=== PATIENT | female | born 1980 | race Caucasian/White ===

== ENCOUNTER → 2024-05-25 07:29 | Outpatient (CLI) | payer OTHER, SELFPAY ==
--- NOTE | 2024-05-25 07:30 | DI.US.S_ITS ---
PROCEDURE: US PELVIC COMPLETE INDICATIONS: Pre hysterectomy evaluation of endometrium/pelvis TECHNIQUE: Real-time scanning was performed of the pelvic organs, with image documentation. Additional endovaginal scanning was necessary due to incomplete visualization of the adnexal and endometrial structures by transabdominal scanning. COMPARISON: None. FINDINGS: Uterus: Uterus is anteverted and normal in size at 8.0 x 4.2 x 4.9 cm. The myometrium is heterogeneous. The endometrium measures 12 mm combined thickness. No uterine fibroids. Ovaries: The right ovary measures 3.2 x 3.4 x 2.3 cm, with a calculated ovarian volume of 12.9 cc. Simple cyst measuring 2.8 x 2.0 x 2.4 centimeters The left ovary measures 1.9 x 2.9 x 2.4 cm, with a calculated ovarian volume of 6.9 cc. Simple cyst measuring 1.6 x 1.7 x 1.6 centimeters. The ovaries have a normal sonographic appearance. Less than 12 follicles can be seen in each ovary. No adnexal masses are seen. Other: No pathologic free abdominal or pelvic fluid. IMPRESSION: Endometrium is normal in thickness for a premenopausal female. Simple cysts within the bilateral ovaries which are likely physiologic. Otherwise, normal appearance of the ovaries. We strive to produce accurate, complete, and clear reports of imaging services. To assist us in improving patient care, this report was composed using standard report templates and voice recognition software. Therefore, it may contain abnormal punctuation, insertions and/or omissions. Occasional wrong-word or sound-alike substitutions may occur. Though we review the report and make efforts to correct it, we do recommend that the report be read carefully in proper context to recognize any text inaccuracies. Dictated by: Andre Parker M.D. on 05/25/2024 at 13:24 Approved by: Andre Parker M.D. on 05/25/2024 at 13:28
== END ==
LOC: US 07:29
PROVIDERS: Referring Provider Obstetrics & Gynecology; Visit Provider Obstetrics & Gynecology
DX: Z01.818 Encounter for other preprocedural examination (principal); N83.292 Other ovarian cyst, left side; N83.291 Other ovarian cyst, right side
CPT/HCPCS: 76830; 76856

== ENCOUNTER → 2024-08-11 14:04 | Outpatient (CLI) | payer OTHER, SELFPAY ==
--- NOTE | 2024-08-11 14:06 | DI.CT.S_ITS ---
PROCEDURE: CT SINUS SCREEN WO CON INDICATIONS: NASAL OBSTRUCTION/PANSINUITIS/RHINITIS TECHNIQUE: Noncontrast 3.0 mm axial images acquired from the frontal sinuses to the mid-sella, with coronal and sagittal reformats. For radiation dose reduction, the following was used: automated exposure control, adjustment of mA and/or kV according to patient size. COMPARISON: None. FINDINGS: Image quality: Excellent. Maxillary Sinuses: Significant mucosal thickening and debris left maxillary sinus with obstruction of the ostiomeatal unit. Mucosal thickening in a right also results in occlusion of the ostiomeatal unit. Small right retention cyst present. Bilateral Oswaldo cells noted posterior to the egress tracks Ethmoid Air Cells: No bony remodeling or destruction. Sinuses are clear. Sphenoid Sinuses: No bony remodeling or destruction. Sinuses are clear. Frontal Sinuses: No bony remodeling or destruction. Sinuses are clear. Miscellaneous: Visualized intra-orbital contents are normal. No patricia bullosa or paradoxical turbinate curvature. No nasal septal deviation. Comminuted nasal bone fracture, probably old. Incidental congenital incomplete ring of C1 IMPRESSION: Left maxillary significant mucosal sinus disease with obstruction of the bilateral ostiomeatal units Old comminuted nasal bone fracture. Midline septum Approved by: Reece Rosen M.D. on 08/11/2024 at 14:25
== END ==
LOC: CT 14:05
PROVIDERS: Referring Provider Otolaryngology; Visit Provider Otolaryngology
DX: J32.4 Chronic pansinusitis (principal); J34.89 Other specified disorders of nose and nasal sinuses; J31.0 Chronic rhinitis; J30.9 Allergic rhinitis, unspecified; J34.2 Deviated nasal septum; J34.3 Hypertrophy of nasal turbinates
CPT/HCPCS: 70486

== ENCOUNTER 2024-09-02 08:22 | Day surgery (SDC) | payer OTHER, SELFPAY ==
--- NOTE | 2024-09-02 | PATH_ITS ---
[facility] Accession Number: [id number] No. of containers..01 Tissue . 01 Material submitted: . rectum - RECTAL POLYP AT 20 CM . 01 Diagnosis: RECTAL POLYP AT 20 CM: Hyperplastic polyp with erosion. RAY 09/06/2024 1159 Local . 01 Electronically signed: . Danny Alberts MD, PhD, Pathologist NPI- [id number] . 01 Gross description: . RECTAL POLYP AT 20 CM: Received in formalin is 1 fragment(s) of dempsey, soft tissue measuring 0.4 x 0.2 x 0.2 cm submitted entirely in 1 cassette(s) /GAMA 09/05/2024 1708 Local . 01 Pathologist provided ICD-10: K62.1 . 01 CPT . 737864 Specimen Comment: A courtesy copy of this report has been sent to [facility] Pathology Performed at: [address] [facility] [address] [address], [place], [place] [id number] MD Mauri Camara MD Phone: [phone]
--- NOTE | 2024-09-02 08:54 | PM.HP.IH.1 ---
History of Present Illness History of Present Illness Date Patient Seen: 09/02/24 Time Patient Seen: 08:54 Chief complaint: Dx Colonoscopy w/poss bx Narrative: Positive fecal immunohistochemistry test [facility] Medical History (Updated 05/18/24 @ 20:20 by Jahaira Aguilar) Sleep apnea (~2015) Allergies (~2008) Migraines (~2009) Foot pain (~2009) Chronic back pain (~2017) Anemia (~1978) Tinnitus (~2017) Recurrent sinusitis (~2015) Irregular menstrual cycle (~2020) Herpes (~2004) Frequent UTI (~2019) G6PD deficiency (~1978) Vaginal enterocele due to incomplete uterovaginal prolapse (~2020) CHELSEA (stress urinary incontinence, female) (~2019) Surgical History (Updated 05/18/24 @ 20:20 by Jahaira Aguilar) Anesthesia History of bunionectomy History of section (~2010) History of rhinoplasty (~2011) History of tonsillectomy (~1999) Family History (Updated 05/18/24 @ 20:23 by Jahaira Aguilar) Grandfather Stroke Grandfather History of heart disease Grandmother Breast cancer Social History household members: spouse Smoking Status: Never smoker alcohol intake: current Meds Home Medications and Allergies Home Medications Medication Instructions Recorded Confirmed Type sodium,potassium,mag sulfates 17.5 See Rx Instructions PO .COMPLEX 08/17/24 Rx gram-3.13 gram-1.6 gram oral soln #354 mL (Suprep Bowel Prep Kit) prednisone 10 mg tablet 10 mg PO DAILY 09/02/24 09/02/24 History Allergies Allergy/AdvReac Type Severity Reaction Status Date / Time No Known Drug Allergies Allergy Verified 09/02/24 08:25 Review of Systems Review of Systems Narrative: Denies unexpected weight loss, hematochezia, bright red blood per rectum, no family history of colon cancer Exam Const General: cooperative and healthy appearing Orientation: alert, awake and oriented x3 HENMT Head: normal to inspection Eyes General: appearance normal, both eyes and all related structures Neck Neck: normal visual inspection Chest Chest: normal inspection of the chest Resp Effort & Inspection: normal respiratory effort GI Inspection: normal to inspection Palpation: soft Assessment & Plan Assessment & Plan narrative: Positive fit test here for screening colonoscopy. Consent obtained, questions answered Time-Based Coding :: [TOTAL MINUTES] spent with patient and on the chart (including review of chart, obtaining history, exam, reviewing outside data, placing orders, documenting exam and treatment plan, and counseling patient) on [DATE]. [employer] Online [employer] Manager Document charge(s): Yes
[2024-09-02 09:45] VITALS: BP 112/72; PULSE 70; RESP 12; TEMP 36.1; O2SAT 99
--- NOTE | 2024-09-02 09:46 | PM.OP.COLON ---
Operative Date/Time/Diagnoses Date of procedure: 09/02/24 Time of procedure: 09:46 Pre-op diagnosis: Positive fit test Post-op diagnosis: same Procedure & Clinicians Study performed: Colonoscopy Same procedure as scheduled: Yes Indications: Positive fit test Surgeon: Raman Harris Procedure Notes SCOAP/Timeout: Performed Procedure in detail: Patient seen in the preop area, H and P updated, positive fecal occult testing. Patient reported prep was adequate. Patient brought back to procedure room, time-out was performed verifying correct patient procedure. She was given sedation. External rectal exam was performed with no identified fissures, or external hemorrhoids of significance. Digital rectal exam performed with no masses or blood. Colonoscope placed, colon insufflated, adequacy of prep was adequate but not perfect the scope was passed without difficulty to the cecum, verified by identification of the tinea. And palpation The scope was withdrawn with circumferential view of the colon, areas occluded by bowel prep or cleaned as much as possible. Several colonic diverticulum were noted the cecum, transverse colon, and descending colon. There was no bleeding. One lesion was identified at 20 cm, this had a sessile polyp appearance at the tip, but was with a long base, more consistent with an inverted colonic diverticulum was not a polyp. The tip of this was biopsied. Photograph was taken No other lesions were identified upon removal of the scope. The scope was retroflexed in the rectum and no internal hemorrhoids were identified air was withdrawn from the colon, scope was withdrawn, and the patient was brought to the recovery area in stable condition. Scope withdrawal time: 12 Findings: divertiulosis and other findings (Cecal polyp or inverted diverticulum at 20 cm, biopsy was taken) Specimen(s): other (Biopsy 20 cm) Complications: none Impression: Diverticulosis, polyp versus inverted diverticulum. Post-procedure Recommendations: Colonoscopy in 5 years Plan for aftercare: PACU Follow up: weeks (Call in 2 weeks if not notified about pathology reports before then) Disposition: PACU
[2024-09-02 09:47] VITALS: BP 106/73; PULSE 61; RESP 15; O2SAT 98
[2024-09-02 09:52] VITALS: BP 108/73; PULSE 56; RESP 10; TEMP 36.1; O2SAT 98
== END 2024-09-02 10:06 | disposition home or self-care (01) ==
DX: Z12.11 Encounter for screening for malignant neoplasm of colon (principal); R19.5 Other fecal abnormalities; K57.30 Diverticulosis of large intestine without perforation or abscess without bleeding; K63.5 Polyp of colon
CPT/HCPCS: 45380; J2704

== ENCOUNTER 2024-10-06 10:52 | Day surgery (SDC) | payer OTHER, SELFPAY ==
[2024-08-01 08:35] VITALS: BMI 23.0
[2024-10-06] VITALS (16 sets, daily range): BP systolic 89–105; BP diastolic 46–66; PULSE 61–89; RESP 10–97; TEMP 35.7–36.6; O2SAT 16–99; BMI 23.0
--- NOTE | 2024-10-06 | PATH_ITS ---
[facility] Accession Number: [id number] No. of containers..01 Tissue . 01 Material submitted: . uterus - UTERUS, CERVIX, BILATERAL TUBES . 01 Diagnosis: UTERUS, CERVIX, AND BILATERAL FALLOPIAN TUBES, HYSTERECTOMY AND BILATERAL SALPINGECTOMY: Uterus and cervix with focal serosal adhesions and weakly proliferative endometrium. Bilateral fimbriated fallopian tubes with benign paratubal cysts. Negative for malignancy. [facility] 10/13/2024 1649 Local . 01 Electronically signed: . Rosa Zuniga DO, Pathologist NPI- [id number] . 01 Gross description: . Received in formalin with two identifiers and uterus, cervix, bilat. tubes, is an intact uterus (85 grams, 7.8 cm superior to inferior, 5.1 cm medial to lateral, 4.0 cm anterior to posterior) with attached cervix (3.7 x 3.0 cm), left fallpian tube (6.4 x 0.7 cm), right fallopian tube (7.3 x 0.9 cm), and no additional adnexa. . The ectocervix is dempsey and finely granular with a patulous os 0.9 cm in diameter. The anterior paracervical margin is inked blue while the posterior paracervical margin is inked black. The serosa is dempsey with the posterior surface slightly roughened. . The endocervical canal has dempsey herringbone mucosa and is 2.4 cm in length. The endometrial cavity is 2.6 cm from cornu to cornu, and 4.3 cm in length with pink-red velvety endometrium that averages 0.2 cm thick. The myometrium is pink-dempsey and measures up to 2.1 cm in maximum thickness with no lesions identified. . Both tubes have violaceous, smooth serosa with cystic structures up to 1.6 cm in greatest dimension filled with dempsey serous fluid. The lumen of the left tube has an area of narrowing down to 0.1 cm in greatest dimension and is not grossly patent. The remaining lumen are stellate and unremarkable. . [employer] Superintendent sections are submitted as follows: A1: Anterior cervix. A2: Posterior cervix. A3: Anterior full thickness section. A4: Posterior full thickness section. A5: Area of roughened serosa. A6: Left fallopian tube to include one-half of bisected fimbriae and cross-sections. A7: Right fallopian tube to include one-half of bisected fimbriae and cross-sections. ([id number]) /RAY 10/07/2024 1022 Local . 01 Pathologist provided ICD-10: N81.4 . 01 CPT . 758542 Specimen Comment: A courtesy copy of this report has been sent to [phone] Performed at: [address] [address], [place], [place] [id number] MD Mauri Camara MD Phone: [phone]
[2024-10-06] MEDS: ACETAMINOPHEN 325 MG TABLET 650 MG PO ×3 (11:16→22:40)
[2024-10-06] MEDS: LACTATED RINGERS 1,000 ML 42 ML IV ×2 (11:18→15:03)
--- NOTE | 2024-10-06 11:52 | PM.PREOP ---
Pre-operative Note COVID-19 COVID-19 status: Not tested Interval Note History & Physical reviewed/Exam performed by Physician: Yes Changes to H&P: No
[2024-10-06] MEDS: CEFAZOLIN 2 GM/100 ML PREMIX 100 ML IV (12:02)
--- NOTE | 2024-10-06 12:27 | SUR.OPER ---
Lithotomy on padded OR bed. [place] Pad Positioner under torso. Head on pillow, arms padded and tucked at sides. Legs secured in padded yellow fins stirrups.
[2024-10-06] MEDS: BUPIVACAINE 0.25% W/ EPI 30 ML VIAL INJ ×2 (12:49→15:14)
[2024-10-06] MEDS: ROPIVACAINE 0.2% PF 2 MG/ML 10ML AMP 20 ML INJ (14:29)
--- NOTE | 2024-10-06 15:55 | PM.GYNOP.1 ---
Operative Date/Time/Diagnoses Date of procedure: 10/06/24 Time of procedure: 11:50 Pre-op diagnosis: Menometrorrhagia Uterovaginal prolapse, incomplete Stage II cystocele Enterocele Stage II rectocele Urinary incontinence Post-op diagnosis: same Procedure & Clinicians Procedure: Procedures Operation Date: 10/06/24 11:30 Actual Procedure Side Surgeon p Laparoscopic Total Hysterectomy with bilateral salpingectomy Bryan Franco MD s Laparoscopic uterosacral vault suspension s Laparoscopic, enterocele repair s Anterior and posterior colporrhaphy. MD Bryan Barger MD Joseph E. Wilson, MD s Mid urethral sling placement with cystoscopy Bryan Franco MD Indications: Shannan is a 43-year-old [employer] , who presents for evaluation of prolapse and urinary incontinence. Patient experienced menarche age 14-15 and her periods were irregular. She spent many of her reproductive years on oral contraceptives and had regular cycles while on OCs. Her 1st was delivered by section after secondary arrest in the 2nd stage and she had a 2nd delivery by vaginal subsequent to her primary . Both babies were in the mid 7 lb range. Since coming off OCs at age 39, patient's cycles have become irregular again but no intermenstrual or postcoital bleeding noted. Patient noticed a bulge vaginally in about 2020 and new that ?something was not right?. Since that time the bulge has continued to get larger and she was fitted with a 6. Ring pessary with support which provide some relief but falls out a least every 48 hours. In addition she is uncomfortable with an while it is in place. She does pelvic floor exercises faithfully but has not experienced significant benefit. She does have some urge and frequency but primarily has CHELSEA symptoms with rare episodes of urge incontinence. Paps have always been normal with her most recent in 2021. We had an extended discussion about pelvic organ prolapse, it is causes, and options for treatment/management. Following that discussion, patient would like to proceed with total laparoscopic hysterectomy, laparoscopic uterosacral ligament vault suspension, laparoscopic enterocele repair, anterior and posterior colporrhaphy with perineoplasty, and mid urethral sling with cystoscopy. She presents today for her scheduled surgery. Surgeon: Bryan Franco Tour Sales Representative: Claudia Carlson Anesthesia Type: General Operative Notes Findings: The uterus is normal in size and shape. There is some scarring in the anterior cul-de-sac from prior . The posterior cul-de-sac is free of adhesions but there is a significant enterocele noted. Both ovaries appear to be normal and there is a follicle cyst in the left ovary. Both fallopian tubes also appeared to be normal. The appendix was not visualized but the upper abdomen including the liver edge, gallbladder and diaphragm were normal to laparoscopic inspection. Closure Type: primary Specimen(s): left tube, right tube and uterus Applied: catheter and other (Vaginal packing) Estimated blood loss (mL): 150 Blood products transfused: none Procedure in detail: With the patient in modified dorsal lithotomy position preparations were made by prepping and draping the patient in usual manner for vaginal surgery and insertion of Martinez catheter. A pre-surgical time-out was then taken in accordance with [facility] policy. A bivalve speculum was then placed in the vagina and the cervix visualized. A weighted speculum was inserted in the vagina and the anterior vaginal wall inspected. A Martinez catheter was inserted in the bladder and the mid urethra was identified by palpation of the Martinez bulb. Once the mid urethra had been identified, 2 Allis clamps were placed and the area of incision infiltrated with 0.25% Marcaine with epinephrine. A 2 cm longitudinal incision of the vaginal mucosa overlying the mid urethra was then made and using Metzenbaum scissors the dissection was carried lateral on both sides so as to be able to safely introduce the retropubic tension-free vaginal tape. The TVT needle was placed 1st on the right side followed by placement of a left up through the suprapubic skin. The needle tips were brought out through the skin and remained in place while the Martinez catheter was removed and cystoscopy performed with findings as noted above. The TVT needles were then brought up through the suprapubic incisions and removed with suture scissors. The mid urethral sling was then appropriately positioned under the mid urethra and the plastic sleeves removed from the TVT once it was in correct position. The redundant portion TVT material was then excised at the skin line of the suprapubic incisions. Correct positioning of the TVT was then confirmed and the vaginal incision closed with 3-0 chromic in a running locking stitch. Pressure was maintained on the retropubic tissues for 5 minutes so as to reduce the risk subsequent bleeding or bruising. The suprapubic incisions were then closed with skin glue. and inappropriate dressing was applied. The barrier midline of the vaginal mucosa was then infiltrated with 0.25% Marcaine with epinephrine up to the cervical vaginal reflection. A longitudinal incision was then made with a scalpel and the submucosal tissues were dissected sharply and bluntly from the anterior wall of the vagina. An anterior repair was then performed with a 2 layer plication utilizing 0 Vicryl sutures. The redundant portion of vaginal mucosa was then excised and the anterior colporrhaphy was closed with 0 Vicryl interrupted near the apex and running interlocking stitch toward the introitus. The anterior lip of the cervix was then grasped with a single-tooth tenaculum. The uterus was sounded to 7 cm, the endocervical canal dilated slightly, and a Superprotonicare uterine manipulator with a small colpotomy cup was placed. The umbilicus was then infiltrated with 0.5% Marcaine with epinephrine. A 1 cm umbilical incision was made transversely and a Veress needle was used to insufflate the abdominal cavity with carbon dioxide. Once the abdomen was appropriately insufflated, a 5 mm trocar and sleeve were then placed through the umbilical incision. The scope was placed through the trocar and the initial assessment of the intra-abdominal contents carried out. A 2nd and 3rd 5 mm port was then placed 1st in the right mid quadrant from then the left mid quadrant by infiltration of the skin and subcutaneous tissues, a 1 cm transverse incision and insertion of the 5 mm bladeless port. A 4th 5 mm trocar was introduced deep in the right lower quadrant in a similar fashion. Using a 4 puncture technique, the abdomen and pelvis were inspected laparoscopy and photographically documented. The uterosacral ligaments were identified on both sides and the lateral edges of the uterosacral ligaments were marked with small dots created by monopolar cautery on cutting current at 20 w so as to be able to identify the lateral margins of the uterosacral ligaments at the time of uterosacral vault suspension. Uterus is mobilized with the VCare manipulator and attention turned to the left adnexa. The distal tube was then grasped and the fimbria varicose divided after coagulation with the PowerSeal device. The dissection was then carried out toward the cornua and the fallopian tube amputated. The tube was removed through a 5 mm port and dissection was then carried down using the PowerSeal device so as to divide the utero-ovarian ligament and the round ligament with blunt and sharp dissection of the broad down to the level of the uterine artery. The uterine artery was then skeletonized after development of a bladder flap, coagulated, and divided. Once hemostasis was assured on the left side attention was turned to the right and the tube, utero-ovarian ligament, round ligament, and broad ligament were dissected in a fashion exactly the same as it had been on the left. The right uterine artery was then visualized after skeletonization and coagulated and divided. The uterus was seen to daquan after coagulation of both your arteries and the cup was identified through the vaginal muscularis at its insertion with the body of the cervix. Circumferential excision of the vaginal cup was accomplished without difficulty using monopolar current and the uterus mobilized. The uterus was then removed through the vagina and the vaginal cuff was closed with a 2-0 Stratafix suture introduced through the vaginal canal and incorporating the distal aspects of the uterosacral ligaments on both sides. Hemostasis was excellent, the abdomen was re-insufflated, and the pelvis inspected laparoscopically. Using 2-0 Ethibond suture, 2 sutures were placed on either side so as to incorporate the more proximal portions of the uterosacral ligament on each side to the vaginal cuff. Each suture was tied securely in place with extracorporeal knot pusher. Three additional 2-0 Ethibond sutures were used to perform a Halban culdoplasty. The pelvis was inspected for any abnormality or bleeding, and the ureters were each seen to be peristalsing freely. 20 cc of ropivacaine were instilled into the posterior cul-de-sac. With complete hemostasis assured, the pneumoperitoneum was vented and the ports removed. All of the 5 mm ports were then closed with 4-0 Monocryl on the skin using inverted interrupted sutures. Skin glue was placed and after the glue was dried, an appropriate dressing was applied. Speculum exam showed no vaginal bleeding with excellent suspension of the vaginal apex and anterior vaginal wall. The posterior vaginal wall was then exposed with anterior retractors and a nica-shaped incision over the perineal body and distal vagina was performed with sharp dissection. The perineal body and posterior vaginal wall in the midline for infiltrated with 0.25% Marcaine with epinephrine. A longitudinal incision in the midline of the vaginal mucosa posteriorly was then made and sharp and blunt dissection was used to expose the perirectal spaces and the levator complexes. 0 Vicryl stitches were used in 2 layers to plicate the posterior vaginal wall/levators. Hemostasis was excellent. The redundant portion of the vaginal mucosa was then excised. Posterior vaginal mucosa then was closed with 0 Vicryl in a running interlocking stitch to the introitus. A subcuticular closure of the perineal skin was then performed with 2-0 Vicryl after closure of the deep tissues with 0 Vicryl interrupted. Vaginal pack was placed and the case was then terminated, the patient awakened, and then transferred to PACU after having tolerated the procedure well. Complications: none Post-operative Condition: stable Disposition: PACU Plan for aftercare: Routine postoperative care with follow-up planned for 2 weeks postop
[2024-10-06] MEDS: HYDROMORPHONE 1 MG INJ IV ×2 (16:05→16:09)
[2024-10-06] MEDS: ONDANSETRON 4 MG/2 ML INJ IV ×2 (16:22→20:38)
[2024-10-06] MEDS: OXYCODONE IR 5 MG TABLET PO (16:22)
[2024-10-06] MEDS: hydrOXYzine HCL 25 MG TABLET PO (16:26)
[2024-10-06] MEDS: LACTATED RINGERS 1,000 ML 100 ML IV (16:55)
[2024-10-06] MEDS: KETOROLAC 30 MG/ML VIAL IV (20:38)
[2024-10-06] MEDS: DOCUSATE 100 MG CAPSULE 200 MG PO (20:38)
[2024-10-07] VITALS: BP 89/45; PULSE 73; RESP 19; TEMP 36.6; O2SAT 95
[2024-10-07] MEDS: ONDANSETRON 4 MG/2 ML INJ IV ×3 (01:40→09:52)
[2024-10-07] MEDS: LACTATED RINGERS 1,000 ML 100 ML IV (01:47)
[2024-10-07] MEDS: KETOROLAC 30 MG/ML VIAL IV ×2 (03:26→09:52)
[2024-10-07] MEDS: HYDROMORPHONE 1 MG INJ IV ×2 (03:30→06:25)
[2024-10-07] MEDS: SODIUM CHLORIDE 0.9% FLUSH 10 ML IV ×2 (03:30→06:26)
--- NOTE | 2024-10-07 03:41 | PC.NURSE ---
Addendum entered by Kush Saleem R.N. 10/07/24 06:39: Patient medicated prior to removal of vagina packing and plunkett removal. Patient tolerated removal well with discomfort. Disposable brief and liner put on. Patient then given IV pain medication( view EMAR) due to discomfort after removal. Patients VS taken after administration of IV pain medication, Patients BP 84/65 (65) all over VS WNL. Patient stated feeling a little light headed. RN stayed bedside and reassured patient. 5 minutes later patient stated feeling better and asked for some fresh ice water. Patient denied feeling N/V, and lightheadedness resolved. Patient told to use call button to notify staff if she were to notice a gushing or leaking sensation coming from vagina. Patient verbalized understanding and had no questions. Call light left on lap of patient, Continues pulse ox reattached for monitoring. 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 Only occurs when patient repositions self in bed; other herrera patient states only a 2-3 pain. All dressing appear CDI, no shadowing in any dressings. VS WNL, Patient denies any N/V, lightheadedness. 2nd bag of LR going at 100mls/hr.
[2024-10-07] MEDS: ACETAMINOPHEN 325 MG TABLET 650 MG PO ×2 (05:22→09:51)
[2024-10-07] MEDS: OXYCODONE IR 5 MG TABLET PO ×2 (05:22→12:04)
[2024-10-07 06:11] LABS: Add Manual Diff / Slide Review NO; Basophils Absolute Auto 100 /uL (0-100); Basophils Percent Auto 0.5 % (0-2); Eosinophils Absolute Auto 0 /uL (0-450); Eosinophils Percent Auto 0.3 % (2-4); Lymphocytes Absolute Auto 2000 /uL (1100-4500); Mean Corpuscular HGB Conc 35.4 % (30-36); Mean Corpuscular Hemoglobin 33.7 PG (26-34); Mean Corpuscular Volume 95.4 fL (80-100); Monocytes Absolute Auto 900 /uL (0-900); Monocytes Percent Auto 8.8 % (3-14); Neutrophils Absolute Auto 7200 /uL (1500-7000); Neutrophils Percent Auto 70.4 % (50-75); Platelet Count 143 X10^3/uL (150-400); Red Blood Cell Count 3.25 X10^6/uL (4.0-5.2); Red Cell Distribution Width 12.9 % (11.6-14.8); White Blood Cell Count 10.2 X10^3/uL (4.5-11.0)
[2024-10-07 06:34] VITALS: BP 88/52; PULSE 65; RESP 19; TEMP 36.2; O2SAT 99
[2024-10-07 08:17] VITALS: BP 91/49; PULSE 74; RESP 16; TEMP 36.2; O2SAT 95
[2024-10-07] MEDS: DOCUSATE 100 MG CAPSULE 200 MG PO (09:52)
--- NOTE | 2024-10-07 12:49 | P.DS_ITS ---
History of Present Illness History of Present Illness Date Patient Seen: 10/07/24 Time Patient Seen: 12:49 Chief complaint: Pelvic organ prolapse Narrative: Shannan is a 43-year-old [employer] , who presents for evaluation of prolapse and urinary incontinence. Patient experienced menarche age 14-15 and her periods were irregular. She spent many of her reproductive years on oral contraceptives and had regular cycles while on OCs. Her 1st was delivered by section after secondary arrest in the 2nd stage and she had a 2nd delivery by vaginal subsequent to her primary . Both babies were in the mid 7 lb range. Since coming off OCs at age 39, patient's cycles have become irregular again but no intermenstrual or postcoital bleeding noted. Patient noticed a bulge vaginally in about 2020 and new that ?something was not right?. Since that time the bulge has continued to get larger and she was fitted with a 6. Ring pessary with support which provide some relief but falls out a least every 48 hours. In addition she is uncomfortable with an while it is in place. She does pelvic floor exercises faithfully but has not experienced significant benefit. She does have some urge and frequency but primarily has CHELSEA symptoms with rare episodes of urge incontinence. Paps have always been normal with her most recent in 2021. We had an extended discussion about pelvic organ prolapse, it is causes, and options for treatment/management. Following that discussion, patient would like to proceed with total laparoscopic hysterectomy, laparoscopic uterosacral ligament vault suspension, laparoscopic enterocele repair, anterior and posterior colporrhaphy with perineoplasty, and mid urethral sling with cystoscopy. She presents today for her scheduled surgery. Discharge Providers Provider Discharge Date: 10/07/24 Primary care physician: Gino SANCHEZ Provider Discharge provider: Bryan Franco MD Summary Hospital Course Discharge Diagnosis: Menometrorrhagia Uterovaginal prolapse, incomplete Stage II cystocele Enterocele Stage II rectocele Stress urinary incontinence Status post total laparoscopic hysterectomy with bilateral salpingectomy, laparoscopic uterosacral ligament vault suspension, laparoscopic enterocele repair, anterior and posterior colporrhaphy, mid urethral sling placement with cystoscopy Hospital Course: Shannan was admitted on the morning of 10/06/2024 and subsequently underwent a total laparoscopic hysterectomy with bilateral salpingectomy along with reconstructive procedures for her uterovaginal prolapse, enterocele, rectocele, and cystocele as well as mid urethral sling placement with cystoscopy. Full details of the procedure well summarized on my operative note of that date. Following delivery she has done exceptionally well with prompt return of bowel and bladder function, she is ambulating independently, tolerating regular diet, and her pain is well controlled with oral pain medications. She is discharged at this time to home in an afebrile normotensive condition after counseling regarding precautionary symptoms, limitations of activity, medications, and plans for follow-up which will be in 2 weeks. Medications on discharge will include resumption of all pre-admission medications and oxycodone 5 mg every 4-6 hours as needed for pain, dispense 20 with no refills. Exam Vital Signs (past 8 hours): - 10/07/24 06:34 10/07/24 08:17 10/07/24 10:00 Temperature 97.2 F L 97.2 F L Pulse Rate 65 74 Respiratory Rate 19 16 Blood Pressure 88/52 L 91/49 L Pulse Oximetry 99 95 Oxygen Delivery Method Room Air Oxygen Flow Rate 0 0 Oxygen Delivery Method Room Air Oxygen Flow Rate 0 Const General: cooperative and comfortable Nutritional Appearance: average body habitus Orientation: alert and oriented x3 HENMT Head: normal to inspection, atraumatic and abrasion Ears: hearing grossly normal bilaterally Face and sinus: face symmetric Eyes General: appearance normal, both eyes and all related structures Conjunctivae: conjunctivae normal Sclera: sclerae normal EOM: EOM intact bilaterally Neck Neck: normal visual inspection Resp Effort & Inspection: normal respiratory effort and able to speak in complete sentences Auscultation: clear to auscultation bilaterally Cardio Rate: regular rate Rhythm: regular rhythm Heart Sounds: S1 normal, S2 normal and no murmurs GI Inspection: normal to inspection and incision (Surgical dressings clean and dry) Palpation: soft, no hepatosplenomegaly and tender (Mild, diffuse postsurgical tenderness) Auscultation: normal bowel sounds External Female Exam: other (No significant bleeding noted) Extrem General: no calf tenderness Psych Appearance: grossly normal Mental Status: mental status grossly normal Speech and Movement: speech and movement normal Mood: congruent mood Affect: normal affect Attitude: cooperative Thought Process: normal Thought Content: normal Judgment: judgment good Objective Labs 10/07/24 05:58 Labs: Laboratory Results - last 24 hr 10/07/24 05:58 WBC 10.2 RBC 3.25 L Hgb 11.0 L Hct 31.0 L MCV 95.4 MCH 33.7 MCHC 35.4 RDW 12.9 Plt Count 143 L Neut % (Auto) 70.4 Lymph % (Auto) 20.0 L [place] % (Auto) 8.8 Eos % (Auto) 0.3 L Baso % (Auto) 0.5 Neut # (Auto) 7200 H Lymph # (Auto) 2000 [place] # (Auto) 900 Eos # (Auto) 0 Baso # (Auto) 100 PFSH Medical History (Updated 10/21/24 @ 11:06 by Bryan Franco MD) Anesthesia complication Sleep apnea (~2015) Allergies (~2008) Migraines (~2009) Foot pain (~2009) Chronic back pain (~2017) Anemia (~1978) Tinnitus (~2017) Recurrent sinusitis (~2015) Irregular menstrual cycle (~2020) Herpes (~2004) Frequent UTI (~2019) G6PD deficiency (~1978) Vaginal enterocele due to incomplete uterovaginal prolapse (~2020) CHELSEA (stress urinary incontinence, female) (~2019) Surgical History (Updated 10/06/24 @ 09:42 by Nicole Stanley RN) Hx of colonoscopy (09/02/24) Anesthesia History of bunionectomy History of section (~2010) History of rhinoplasty (~2011) History of tonsillectomy (~1999) Family History (Updated 05/18/24 @ 20:23 by Jahaira Aguilar) Grandfather Stroke Grandfather History of heart disease Grandmother Breast cancer Social History household members: spouse Smoking Status: Never smoker alcohol intake: current Discharge Assessment & Plan Assessment and Plan Assessment: Menometrorrhagia Uterovaginal prolapse, incomplete Stage II cystocele Enterocele Stage II rectocele Stress urinary incontinence Status post total laparoscopic hysterectomy with bilateral salpingectomy, laparoscopic uterosacral ligament vault suspension, laparoscopic enterocele repair, anterior and posterior colporrhaphy, mid urethral sling placement with cystoscopy Plan of Treatment: Routine postop care with follow-up planned for 2 weeks after surgery, or as needed. Discharge Plan Discharge Plan Patient Disposition: Home Provider Discharge Comment: Please review the written instructions you received when you were discharged from the hospital. Your follow-up appointment is scheduled for 2 weeks after your surgery and I look forward to seeing you then. If however in the meanwhile you have any issues, concerns, or questions, please contact me either through the office phone at [phone], or via the patient portal. Discharge orders & Medications Discharge Orders: Discharge (Order); Ordered 10/07/24 Ordered By: Bryan Franco Prescriptions: New oxycodone 5 mg Tablet 5 mg PO Q4-6H PRN (Reason: Pain, Moderate (4-6)) Qty: 20 0RF No Action methylprednisolone [Medrol (Chuy)] 4 mg tablets,dose pack See Rx Instructions PO PER PKG DIR Qty: 21 0RF Rx Instructions: PO PER PKG DIR diphenhydramine HCl [Benadryl Allergy] 25 mg Tablet 25 mg PO DAILY Patient Comments: patient took for 3 days. last dose on thursday Medication counseling provided by Pharmacist: No Follow up/Referrals: Gino Cole [Primary Care Provider] - Bryan Franco MD [Physician] - Diet/Activity/Treatments Diet: Diet as Tolerated Activity: As tolerated Other treatments: [id number] Tylenol and/or ibuprofen may be used as needed for additional pain relief. Pikq-[id number]-[id number] stool softeners and/or MiraLax may be used as needed for constipation. Skin/Wound/Dressing Care Report to your healthcare provider any signs of infection, such as:: chills, fever, increased pain, unusual drainage and unusual redness Dressing: Dressing should be removed on the morning of 10/08/2024. Visit Report/Discharge Packet Instructions: Cystocele and Rectocele Repair, DI for Hysterectomy, DI for Laparoscopy, DI for Prescription Opioid Use Stand Alone Forms: Surgery Discharge Print Language: Jamaican Discharge Data Primary Care Provider: Gino Cole Attending Provider: Bryan Franco PROFEE Charge Codes Discharge inpatient/observation: [id number]
--- NOTE | 2024-10-07 14:15 | CM.DANOTE ---
Discharge Planning/Care Management CM Discharge Assessment Start: 10/07/24 14:13 Freq: Status: Active Protocol: Document 10/07/24 14:13 BALWINDER (Rec: 10/07/24 14:15 JW [id number]) Discharge Planning Assessment Assigned [place] Feather Trimmer UMESH [place] DPOA/Assigned Designee Name Rinku callahan Contact Information [phone] Advance Directives? No Advance Directives on File No Has Patient been admitted in last 30 No days? Prior Living Arrangements House Household Members spouse Type of transporation used prior to Drives own vehicle admit Independent with ADL's Yes Is patient alert and oriented? Yes Caregiver for Another Yes: Children Barriers to Discharge No Discharge Plan Home Transportation Arrangement Family Referrals Initiated None needed Pre-Anesthesia Assessment Start: 08/01/24 08:32 Freq: Status: Active Protocol: Document 08/01/24 08:35 LB (Rec: 08/01/24 08:38 LB [id number]) Pre-Anesthesia Assessment PAC Comment 08/01/24 Chart review. Patient Information Reviewed Via Chart Review Comment No testing identified. Primary Care Provider Epi SANCHEZ Seen Specialist in Last 12 Months Yes Specialist Seen Cartoonist Special Effects Primary Language Faroese Preferred Language Faroese Food Preservation Scientist Required No Height 152.4 cm Weight 53.524 kg Body Mass Index (BMI) 23.0 Anesthesia Review Requested No Insulation Cutter And Former No Smoking Status Never smoker Patient is completely paralyzed or No completely immobile Is patient on oxygen? No Hx Sleep Apnea Yes Currently Taking a Beta Myra No Anti-Coagulant Therapy No Cardiac Testing No Hx Pacemaker/ICD No Diabetes No Presence of External or Internal Medical No Devices Marital Status Lives With spouse Patient Discharge Plan Description Return Home Emergency Contact Name Rinku callahan Emergency Contact Advance Directives on File No
--- NOTE | 2024-10-07 15:35 | PC.NURSE ---
Discharge: Pt A/Ox4. Agreeable to discharge plan. IV removed x2. Discharge education provided. Pt wheeled to POV at 1530 accompanied by mother. Belongings with pt.
== END 2024-10-07 15:30 | disposition home or self-care (01) ==
LOC: OR 10:52 → AC 10:53
PROVIDERS: Referring Provider Obstetrics & Gynecology; Visit Provider Obstetrics & Gynecology
PROC: 0UT94ZZ Resection of Uterus, Percutaneous Endoscopic Approach (ICD-10-PCS; CPT 58571; principal; 2024-10-06 11:30)
PROC: (CPT 58571; 2024-10-06 11:30)
PROC: 0TSD0ZZ Reposition Urethra, Open Approach (ICD-10-PCS; CPT 58571; 2024-10-06 11:30)
DX: N92.1 Excessive and frequent menstruation with irregular cycle (principal); N81.2 Incomplete uterovaginal prolapse; N39.3 Stress incontinence (female) (male); K66.0 Peritoneal adhesions (postprocedural) (postinfection); N83.8 Other noninflammatory disorders of ovary, fallopian tube and broad ligament
CPT/HCPCS: 58571; 57283; 57288; 36415; 85025; A9270; C1771; J0690; J1100; J1171; J1885; J2405; J2704; J2795; J3010

== ENCOUNTER 2024-10-13 10:47 | Day surgery (SDC) | payer OTHER, SELFPAY ==
[2024-10-06 09:40] VITALS: BMI 25.0
[2024-10-13] VITALS (8 sets, daily range): BP systolic 109–120; BP diastolic 65–78; PULSE 50–77; RESP 10–24; TEMP 36.4–36.6; O2SAT 95–100; BMI 23.8
[2024-10-13] MEDS: LACTATED RINGERS 1,000 ML 42 ML IV ×2 (11:31→14:25)
[2024-10-13] MEDS: SCOPOLAMINE 1 PATCH TOP (11:32)
[2024-10-13] MEDS: OXYMETAZOLINE NASAL SPRAY 30 ML 2 SPRAYS NASAL ×2 (11:32→13:24)
[2024-10-13] MEDS: ACETAMINOPHEN IV 1,000 MG/100 ML VIAL 400 MG IV (11:32)
--- NOTE | 2024-10-13 12:23 | PM.PREOP ---
Pre-operative Note Interval Note History & Physical reviewed/Exam performed by Physician: Yes Changes to H&P: Yes H&P completed within 30 days and has changed as indicated here:: Patient status post laparoscopic hysterectomy 10/06/2024, uneventful recovery other than a rash thought to be related to the adhesive from the drape, not much improvement with a Medrol Dosepak begun 10/11 and topical steroid cream but no worsening no systemic issues. After discussing with the patient and with anesthesia, she feels strongly she would like to proceed and I agree the additional risk is minimal.
--- NOTE | 2024-10-13 12:25 | PM.OP.1 ---
Operative Date/Time/Diagnoses Date of procedure: 10/13/24 Time of procedure: 15:13 Pre-op diagnosis: Nasal airway obstruction, septal deviation, inferior turbinate hypertrophy, chronic maxillary sinusitis, mouth breathing, allergic rhinitis Post-op diagnosis: same Procedure & Clinicians Procedure: 1. Bilateral endoscopic maxillary antrostomy 2. Bilateral endoscopic anterior ethmoidectomy 3. Septoplasty 4. Bilateral inferior turbinate reduction via intramural cautery Same procedure as scheduled: Yes Indications: 44 Year old with the above diagnoses incompletely managed with medical therapy presents for the above procedure. Following discussion of the material risks benefits complications and alternatives, the patient elected to proceed. Surgeon: Satnam Adams Click Yes if Unassisted: Yes Anesthesia Type: General and Local Operative Notes Findings: 2 to 3+ left anterior septal deviation, right high septal deviation with thickened bone. Moderate prior scar and irregular cartilage presumably consistent with prior rhinoplasty. A few small flap tears bilaterally but none contiguous. Mildly inflamed mucosa left maxillary sinus, no purulence, RIGHT normal. Estimated Blood Loss (mL): 120 Procedure in detail: Following identification and confirmation of consent as well as preoperative Afrin nasal spray, the patient was brought to the operating room suite and placed in the supine position. General endotracheal anesthesia was administered. I infiltrated the septum widely bilaterally with 1% lidocaine 1 100,000 epinephrine followed by temporary packing with cotton with Afrin and 4% lidocaine. Following sterile prep and drape, the packing was removed and I performed a right chao-transfixion incision, elevated the right mucoperichondrial and mucoperiosteal flap. I disarticulated near the bony/cartilaginous junction and elevated the left mucoperiosteal flap. Deviated portions of the perpendicular plate of the ethmoid and vomer were resected. The residual quadrilateral cartilage was further straightened by trimming it inferiorly as well as reducing the maxillary crest. Non-essential quadrilateral cartilage was scarred and irregular and was removed, but >1cm L-strut was retained. The hemitransfixion incision was closed with interrupted 5 0 chromic followed by a running 4 0 plain gut mattress suture to reapproximate the septal flaps. The head of each inferior turbinate had been previously infiltrated with additional local anesthetic and a 25 gauge spinal needle was used to impale the length of the turbinate, with cautery on a setting of 15 activated on slow withdrawal over 2 passes each side. The turbinates were then outfractured. Under endoscopic guidance the posterior and anterior superior insertion of each middle turbinate was then infiltrated with additional local anesthetic via spinal needle. Cotton pledgets with 1 1000 epinephrine were placed in the middle meatus bilaterally and used intermittently throughout the case in addition. Beginning on the left side, the middle turbinate was slightly medialized and the uncinate process was identified with uncinectomy performed via the backbiting forceps and the microdebrider. The natural os of the maxillary sinus was identified and enlarged posteriorly and inferiorly with forceps and the microdebrider. Anterior ethmoidectomy was performed by removing the ethmoid bulla with the microdebrider. This procedure was repeated on the right side with identical findings. At case completion, 20/1000th of an inch silastic splints were placed bilaterally, sutured anteriorly with a single 4 0 nylon. The procedure completed, sponge and needle counts were correct and the patient was extubated in the operating room and taken to recovery room in stable condition without known complication. Complications: none Post-operative Condition: stable Disposition: same day surgery Plan for aftercare: Nasal saline every hour while awake, begin irrigations t.i.d. tomorrow if desired. Polysporin to the nostrils at all times, Tylenol alternating with Advil for pain control, oxycodone for breakthrough pain. Elevate head of bed, no nose blowing, no straining for 2 weeks. Ice directly under the nose on the upper lip has tolerated 24-48 hours at a minimum. Follow-up in 1 week for nasal splint removal.
[2024-10-13] MEDS: ONDANSETRON 4 MG/2 ML INJ IV ×2 (12:26→15:39)
--- NOTE | 2024-10-13 13:13 | SUR.OPER ---
Supine on padded OR bed, head on pillow, arms padded and tucked at sides, legs uncrossed, safety belt at thigh, tape over blanket over lower legs .
[2024-10-13] MEDS: LIDOCAINE 4% SOLN 50 ML 20 ML TOP (13:53)
[2024-10-13] MEDS: EPINEPHrine 1 MG/ML 3 MG TOP (14:08)
[2024-10-13] MEDS: LIDOCAINE 1% W/EPI 10ML 20 ML INJ (14:11)
[2024-10-13] MEDS: BACITRACIN 28 GM OINT 1 APPLIC TOP (14:11)
[2024-10-13] MEDS: METOCLOPRAMIDE 10 MG/2 ML INJ IV (15:39)
[2024-10-13] MEDS: IBUPROFEN 600 MG TABLET PO (15:39)
[2024-10-13] MEDS: hydrOXYzine 50 MG/ML INJ 25 MG IM (15:40)
[2024-10-13] MEDS: OXYCODONE IR 5 MG TABLET PO (15:57)
== END 2024-10-13 16:47 | disposition home or self-care (01) ==
PROVIDERS: Referring Provider Otolaryngology; Visit Provider Otolaryngology
PROC: 09QM4ZZ Repair Nasal Septum, Percutaneous Endoscopic Approach (ICD-10-PCS; CPT 30520; principal; 2024-10-13 11:45)
DX: J34.3 Hypertrophy of nasal turbinates (principal); J34.2 Deviated nasal septum; J34.89 Other specified disorders of nose and nasal sinuses
CPT/HCPCS: 31254; 31256; 30520; 30802; J0131; J0171; J1100; J2250; J2405; J2704; J2765; J3010; J3410